=== PATIENT | male | born 1970 | race Caucasian/White ===

== ENCOUNTER 2021-02-08 18:33 | Emergency (ER) | payer OTHER, SELFPAY ==
[2021-02-08 18:45] VITALS: BP 145/84; PULSE 76; RESP 24; TEMP 36.4; O2SAT 99
--- NOTE | 2021-02-08 18:50 | ED.SKABFB ---
HPI - Skin/Abscess/Foreign Bdy General Chief complaint: Skin/Abscess/Foreign Body Stated complaint: fish hook stuck on face History of Present Illness HPI narrative: This is a 50 year old male that comes in because he got a fish hook stuck in the face. Patient states that it just happened. Patient denies much pain . Patient states that it happened about 20 minutes ago. Related Data Home Medications Medication Instructions Recorded Confirmed cholecalciferol (vitamin D3) 02/08/21 furosemide [Lasix] 20 mg PO DAILY 02/08/21 02/08/21 lisinopril 20 mg PO DAILY 02/08/21 02/08/21 Allergies Allergy/AdvReac Type Severity Reaction Status Date / Time No Known Allergies Allergy Verified 02/08/21 18:51 Review of Systems Review of Systems: Narrative: CONSTITUTIONAL: Denies fever, chills, or sweats. EYES: Denies visual changes, redness, or discharge. ENT: Denies rhinorrhea, congestion, sore throat, or otalgia.fish hook in the face. CARDIOVASCULAR:Denies chest pain, palpitations, or edema. RESPIRATORY: Denies cough or dyspnea. GASTROINTESTINAL: Denies abdominal pain, nausea, vomiting, or diarrhea. GENITOURINARY: Denies dysuria or hematuria. SKIN:[Denies rash or itching. MUSCULOSKELETAL:Denies back pain, joint pain, or myalgia. NEUROLOGIC: Denies headache, numbness, or weakness. PSYCHIATRIC:Denies anxiety or depression Lab right PMFSH Comments At time as signature, I have reviewed and agree with nursing past medical, social, surgical and family history. Please see nursing chart for further information. There is no relevant family history pertinent to the presenting complaint. Exam Narrative: Exam Narrative: GENERAL:Well-appearing, well-nourished, and in no acute distress. HEAD:Normocephalic, atraumatic. EYES: PERRLA and EOMI. ENT: Nares clear, no rhinorrhea or epistaxis. Mucous membranes moist.fish hook in face NECK: Supple. CHEST: Clear to auscultation. No respiratory distress. HEART: Regular rate and rhythm. No murmur heard. Normal peripheral pulses. ABDOMEN: Soft, nontender, nondistended, normal active bowel sounds. EXTREMITIES: Normal range of motion. No edema. SKIN: Warm, dry, no rash. right cheek fish hook hanging . NEURO: No focal deficits. Alert and oriented x3. Course Vital Signs Vital signs: Vital Signs Temperature 97.6 F 02/08/21 18:45 Pulse Rate 76 02/08/21 18:45 Respiratory Rate 24 H 02/08/21 18:45 Blood Pressure 145/84 H 02/08/21 18:45 Pulse Oximetry 99 02/08/21 18:45 Temperature 97.6 F 02/08/21 18:53 Pulse Rate 76 02/08/21 18:53 Respiratory Rate 24 H 02/08/21 18:53 Blood Pressure 145/84 H 02/08/21 18:53 Pulse Oximetry 99 02/08/21 18:53 Procedures Foreign Body Removal Foreign Body #1: Foreign Body Removal Date: 02/08/21 Foreign Body Removal Time: 19:15 Time Out Performed: yes Site: right and face Description of foreign body: fish hook Sedation/Analgesia: none Technique: manual removal Confirmed by:: direct visualization Complications: none Post-procedure exam: awake, alert, normal HR and normal O2 sat Neurovascular: normal distal pulse, normal capillary fill, distal motor function normal, no signs of compartment syndrome and no change from pre-procedure Foreign Body Removal Narrative: Betadine applied 1ml of lidocaine . Discharge Plan Discharge Clinical Impression: Other foreign body or object entering through skin, initial encounter Patient Disposition: Home, Self-Care Condition: Stable Instructions: Antibiotic Form, Puncture Wound (ED), Acute Wounds (ED) Additional Instructions: Monitor for skin infection take all of antibiotic Prescriptions: New cephalexin 500 mg capsule 500 mg PO Q12H 7 Days Qty: 14 RF: 0 ibuprofen 600 mg tablet 600 mg PO TID PRN (Reason: pain) Qty: 30 RF: 0 No Action lisinopril 20 mg Tablet 20 mg PO DAILY RF: 0 furosemide [
[2021-02-08 18:53] VITALS: BP 145/84; PULSE 76; RESP 24; TEMP 36.4; O2SAT 99
[2021-02-08] MEDS: TETANUS,DIPHTHERIA,AC PERTUSSIS ADULT (0.5 ML) BOOSTRIX IM (19:03)
== END 2021-02-08 19:33 | disposition home or self-care (01) ==
PROVIDERS: Emergency Provider Nurse Practitioner Family
DX: S01.84XA Puncture wound with foreign body of other part of head, initial encounter (principal); W26.8XXA Contact with other sharp object(s), not elsewhere classified, initial encounter; Z23 Encounter for immunization; I10 Essential (primary) hypertension
CPT/HCPCS: 90471; 90715; 99213; G0463